=== PATIENT | male | born 1955 | race Caucasian/White ===

== ENCOUNTER → 2020-12-12 | Outpatient (CLI) | payer MEDICARE, OTHER ==
[~2020-12-12] MED LIST: CLARITIN10 MG PO; COMBIVENT0.074 GM/I INH; COZAAR50 MG PO; FLUZONE QU60 MCG/015 IM; GABAPENTIN800 MG PO; HUMULIN R100 UNIT/1 INJ; LANTUS100 UNIT/1 SQ; MULTIVITAMINS1 EAC2 PO; NAPROXEN500 MG PO; OMEPRAZOLE20 MG PO; PERCOCET 7.5-31 EACH PO; PRINIVIL20 MG PO; TOPAMAX25 MG PO; VENTOLIN HFA 66.7 GM INH; VITAMIN D250000 UNIT PO; ZANTAC 150 MG150 MG PO; ZOCOR40 MG PO
== END ==
LOC: NM 12:53
DX: R06.02 Shortness of breath (principal); R07.9 Chest pain, unspecified
CPT/HCPCS: 78452; 93017; A9502; J2785